=== PATIENT | female | born 1960 | race Two or more races ===

== ENCOUNTER 2024-12-04 04:15 | Day surgery (SDC) | payer OTHER ==
[2024-11-29 13:43] VITALS: BP 145/88
[2024-11-29 14:42] LABS: PARTIAL THROMBOPLASTIN TIME 24.9 SECONDS (22.0-34.0); PROTHROMBIN TIME 10.9 SECONDS (9.0-11.5)
[~2024-12-04] VITALS: Ht 157.5 cm; Wt 63.5 kg
[2024-12-04] MEDS ORDERED: BUPIVACAINE HCL/MPF 0.5% 30ML VIAL ONE (06:59)
[2024-12-04] MEDS ORDERED: LIDOCAINE HCL 1%/EPINEPHRINE 20ML VIAL IJ ONE (06:59)
[2024-12-04] MEDS ORDERED: MIRALAX510 GM PO (07:35)
[2024-12-04] MEDS ORDERED: TRAM1TAB98 PO (07:38)
[2024-12-04] MEDS ORDERED: SURFAK240 M1 PO (07:38)
[2024-12-04] MEDS ORDERED: CEFAZOLIN SODIUM 1,000 MG VIAL IV ONE (08:00)
[2024-12-04] MEDS ORDERED: ENOXAPARIN SODIUM 40 MG/0.4 ML SYRINGE SUBCUTANEO ONE (08:15)
[2024-12-04] MEDS ORDERED: MORPHINE SULFATE 4 MG/ML VIAL IV ONE (10:55)
== END 2024-12-04 14:00 | disposition home or self-care (01) ==
LOC: CIR.AMB 04:15
PROVIDERS: Specialist; ATTEND Surgery
DX: K40.90 Unilateral inguinal hernia, without obstruction or gangrene, not specified as recurrent (principal); K42.0 Umbilical hernia with obstruction, without gangrene; K43.6 Other and unspecified ventral hernia with obstruction, without gangrene; J45.909 Unspecified asthma, uncomplicated; J32.9 Chronic sinusitis, unspecified
CPT/HCPCS: 15734; 49650; 49594; C1781